=== PATIENT | female | born 2000 | race Caucasian/White ===

== ENCOUNTER 2024-11-20 11:05 | Emergency (ER) | payer OTHER, SELFPAY ==
[2024-11-20 11:06] VITALS: BP 127/99; PULSE 85; RESP 16; TEMP 36.8; O2SAT 100; BMI 26.4
[2024-11-20 13:06] VITALS: PULSE 85; RESP 16; O2SAT 99
--- NOTE | 2024-11-20 13:48 | EDS_ITS ---
HPI History of Present Illness Chief Complaint: Head Injury Informant: patient and parent Narrative Narrative: Healthy 24-year-old female states she was going to bed last night and as she laid down she accidentally bumped the back of her head against the wall. She did not injure the wall and did not think she was injured at the time but she woke up this morning with symptoms that she has had in the past with concussion. Headache, sensitivity to light, sensitivity to sound. She denies any focal neurologic symptoms, changes in her vision, nausea, or vomiting. She was sent here from urgent care without any testing. She had several concussions in the past, the last one was a couple years ago related to playing lacrosse. She states that the mechanism last night was nothing compared to that, relatively. She takes no prescription medications. She states her main concern is that at work, she sits in front of an LCD computer screen all day and she is concerned that is going to worsen the symptoms and recovery. [facility] Medical History Concussion Home Medications ?Medication ?Instructions ?Recorded ?Last Taken ?Type NK 11/20/24 Unknown History Allergy/AdvReac Type Severity Reaction Status Date / Time Sulfa (Sulfonamide Allergy Rash Verified 11/20/24 11:09 Antibiotics) Social History Smoking Status: Never smoker [facility] ED Constitutional Constitutional ED: Denies chills or fever(s) Eyes Eyes: Reports as per HPI and photophobia; Denies change in vision or diplopia ENT ENT ED: Denies rhinorrhea or sore throat Cardiovascular Cardiovascular: Denies chest pain or palpitations Respiratory/Chest Respiratory/Chest: Denies cough or dyspnea Gastrointestinal Gastrointestinal: Denies abdominal pain, diarrhea, nausea or vomiting Genitourinary Genitourinary ED: Denies dysuria or hematuria Musculoskeletal Musculoskeletal: Denies back pain or neck pain Integumentary Denies abscess or rash Neurologic Neurologic: Reports headache(s); Denies paresthesias or weakness Psychiatric Psychiatric: Denies anxiety or suicidal thoughts EXAM Physical Exam Const Vital Signs: 11/20/24 11:06 11/20/24 12:47 11/20/24 13:06 Temperature 98.2 F Temperature Source Temporal Pulse Rate 85 85 Respiratory Rate 16 16 Respiratory Effort Normal Blood Pressure 127/99 H Blood Pressure Mean 108 Pulse Ox 100 99 Oxygen Delivery Method Room Air Room Air Positive well nourished and well developed General Appearance ED: well developed and NAD HEENT Reports moist mucous membranes HEENT Narrative: Occiput where patient hit her head is nontender without hematoma crepitance or depression. No Blanco sign. No raccoon eyes. No CSF otorhinorrhea. No hemotympanum. No signs of trauma objectively. normocephalic and atraumatic Eyes PERRL and EOMs intact bilaterally Neck full ROM and supple Resp normal respiratory effort Back/Spine General Back: other FROM Extremity normal to inspection General Extremety ED: Negative for edema, pulses abnormal or tenderness General Extremity: Negative for edema or pulses abnormal Neuro oriented x3, CN's II-XII intact bilaterally and no sensory deficits noted Neuro Narrative: Normal speech. No ataxia. Sensorium / Orientation: awake and alert Motor Exam: strength 5/5 throughout Psych mental status grossly normal and thought process normal Skin no rashes or lesions noted and no wounds MDM MDM MDM Narrative Medical decision making narrative: [place] CT Head Injury/Trauma Rule from [email or web address] on 11/20/2024 All calculations should be rechecked by clinician prior to use RESULT SUMMARY: CT Unnecessary The [place] CT Head Rule suggests a head CT is not necessary for this patient (sensitivity 83-100% for all intracranial traumatic findings, sensitivity 100% for findings requiring neurosurgical intervention). INPUTS: Age <16 years ?> 0 = No Patient on blood thinners ?> 0 = No Seizure after injury ?> 0 = No GCS <15 at 2 hours post-injury ?> 0 = No Suspected open or depressed skull fracture ?> 0 = No Any sign of basilar skull fracture? ?> 0 = No >= episodes of vomiting ?> 0 = No Age >=5 years ?> 0 = No Retrograde amnesia to the event >=30 minutes ?> 0 = No ?Dangerous? mechanism? ?> 0 = No See the above criteria which the patient passes. Therefore head CT not indicated. I discussed this with the patient and mother, they are in agreement with this. The patient really is just looking for a work note to try to get away from screens which I think is entirely medically appropriate. Follow-up advised if her symptoms last a week or longer. Discharge Plan Triage Chief Complaint: Head Injury ED Provider: George Husain Dx/Rx/DC Orders Clinical Impression: Closed head injury with concussion Instructions: After a Concussion Prescriptions: No Action NK Stand Alone Forms: ED Work / School Excuse Primary Care Provider: Care Physician,No Primary Referrals: Doctor,Your [Non-Staff] - 1 Week if not improving Print Language: Emirati Disposition Disposition: Home, Self Care
== END 2024-11-20 14:21 | disposition home or self-care (01) ==
LOC: ED 14:15
PROVIDERS: Emergency Provider Emergency Medicine; PCP Nurse Practitioner Primary Care; Visit Provider Emergency Medicine
DX: S06.0X0A Concussion without loss of consciousness, initial encounter (principal); W22.042A Striking against wall of swimming pool causing other injury, initial encounter; Y92.013 Bedroom of single-family (private) house as the place of occurrence of the external cause
CPT/HCPCS: 99282